=== PATIENT | female | born 1975 | race Caucasian/White ===

== ENCOUNTER 2018-07-27 14:58 | Outpatient (CLI) | payer OTHER | END 2018-07-27 15:13 | disposition home or self-care (01) | LOC: EKG 14:58 → LAB 14:58 | DX: I25.6 Silent myocardial ischemia (principal) ==

== ENCOUNTER → 2018-08-17 | Day surgery (SDC) | payer OTHER | END | disposition home or self-care (01) | LOC: CIR.AMB 06:44 | DX: N84.0 Polyp of corpus uteri (principal) ==

== ENCOUNTER 2020-05-29 05:36 | Day surgery (SDC) | payer OTHER ==
[~2020-05-29 05:36] MED LIST: AMERGE2.5 MG PO; NARATRIPTAN
== END 2020-05-29 13:10 | disposition home or self-care (01) ==
LOC: CIR.AMB 05:36
PROVIDERS: ATTEND Obstetrics & Gynecology
DX: N84.0 Polyp of corpus uteri (principal); Z20.828 Contact with and (suspected) exposure to other viral communicable diseases

== ENCOUNTER 2020-05-30 05:39 | Emergency (ER) | payer OTHER ==
[~2020-05-30] VITALS: Ht 160 cm; Wt 69.4 kg
== END 2020-05-30 10:19 ==
LOC: ER 05:39
DX: R33.8 Other retention of urine (principal)

== ENCOUNTER → 2020-06-01 | Emergency (ER) | payer OTHER ==
[~2020-06-01] VITALS: Ht 160 cm; Wt 69.4 kg
== END | disposition home or self-care (01) ==
LOC: ER 00:35
DX: N13.8 Other obstructive and reflux uropathy (principal)

== ENCOUNTER 2020-11-13 08:00 | Inpatient (IN) | payer OTHER ==
[~2020-11-13] VITALS: Ht 160 cm; Wt 67.6 kg
[2020-11-13] MEDS ORDERED: AMERGE2.5 MG PO (10:32)
[2020-11-13] MEDS ORDERED: [UNRECOGNIZED DRUG - OTHER] PO (10:33)
[2020-11-20] MEDS ORDERED: LEVONORGESTREL1 EAC2 PO (10:39)
== END 2020-11-22 10:03 | disposition home or self-care (01) | DRG 743 ==
LOC: O/R 11-20 07:31 → SURG-SUITE 11-20 07:31 → SURH 11-20 08:00 → SURG-SUITE 11-20 13:41
PROVIDERS: ADMIT Obstetrics & Gynecology; ATTEND Obstetrics & Gynecology
PROC: 0DNW0ZZ Release Peritoneum, Open Approach (ICD-10-PCS; 2020-11-20)
PROC: 0UT90ZL Resection of Uterus, Supracervical, Open Approach (ICD-10-PCS; principal; 2020-11-20 10:00)
DX: N80.0 Endometriosis of uterus (principal); N73.6 Female pelvic peritoneal adhesions (postinfective); D26.1 Other benign neoplasm of corpus uteri